=== PATIENT | female | born 1965 | race Caucasian/White ===

== ENCOUNTER 2021-03-08 06:23 | Day surgery (SDC) | payer BC ==
[~2021-03-08] VITALS: Ht 152.4 cm; Wt 68.2 kg
[2021-03-08] MEDS ORDERED: LEVE250T5 PO (06:56)
[2021-03-08] MEDS ORDERED: CITA40TA12 PO (06:56)
[2021-03-08] MEDS ORDERED: LISI-170 PO (06:56)
[2021-03-08] MEDS ORDERED: VITAMIN D PO (06:56)
[2021-03-08] MEDS ORDERED: CHLORHEXIDINE 15 ML UDC PO ONE (07:00)
[2021-03-08] MEDS ORDERED: LACTATED RINGERS 1,000 ML IV SCH (07:00)
[2021-03-08 07:05] VITALS: BP 118/82
[2021-03-08] MEDS ORDERED: BUPIVACAINE/PF 0.5% ONE (07:35)
[2021-03-08] MEDS ORDERED: LIDOCAINE-MPF 1%, 5ML ONE (07:35)
[2021-03-08 07:52] LABS: ALANINE AMINOTRANSFERASE 50 U/L (12-78); ALBUMIN 3.3 g/dL (3.4-5.0); ANION GAP 9 mmol/L (5-15); CHLORIDE 111 mmol/L (98-107)
[2021-03-08] MEDS ORDERED: PROPOFOL 10 MG/ML, 20ML ONE (07:52)
[2021-03-08] MEDS ORDERED: FENTANYL PF 100 MCG/2ML ONE (07:52)
[2021-03-08] MEDS ORDERED: DEXAMETHASONE 4 MG/ML, 1ML ONE (07:52)
[2021-03-08] MEDS ORDERED: MIDAZOLAM 1 MG/ML, 5ML ONE (07:52)
[2021-03-08] MEDS ORDERED: ONDANSETRON 2MG/ML, 2ML ONE (07:52)
[2021-03-08] MEDS ORDERED: CEFAZOLIN 1,000 MG ONE (07:52)
[2021-03-08 07:55] LABS: ALKALINE PHOSPHATASE 88 U/L (45-117); BILIRUBIN,TOTAL 0.5 mg/dL (0.2-1.0); TOTAL PROTEIN 6.8 g/dL (6.4-8.2)
[2021-03-08] MEDS ORDERED: PROMETHAZINE 25 MG/ML, 1ML IVPush PRN (08:00)
[2021-03-08] MEDS ORDERED: OXYcodone 5 MG/5 ML ORAL.SOL UDC PO PRN (08:00)
[2021-03-08] MEDS ORDERED: morphine SULFATE 10 MG/ML, 1ML IVPush PRN (08:00)
[2021-03-08] MEDS ORDERED: MEPERIDINE/PF 25MG/0.5ML IVPush PRN (08:00)
[2021-03-08] MEDS ORDERED: HYDROmorphone 1 MG/ML, 1ML INJ IVPush PRN (08:00)
[2021-03-08] MEDS ORDERED: LABETALOL 5MG/ML, 20ML IV PRN (08:00)
[2021-03-08] MEDS ORDERED: FENTANYL PF 100 MCG/2ML IV PRN (08:00)
[2021-03-08] MEDS ORDERED: hydrALAzine 20 MG/ML, 1ML IV PRN (08:00)
[2021-03-08] MEDS ORDERED: HALOPERIDOL 5 MG/ML IV PRN (08:00)
[2021-03-08] MEDS ORDERED: ACETAMINOPHEN 650 MG/20.3 ML UDC ONE (09:22)
[2021-03-08] MEDS: ACETAMINOPHEN 325 MG TABLET PO PRN ×2 (09:26→09:29)
== END 2021-03-08 10:55 | disposition home or self-care (01) ==
LOC: OUT 06:23
PROVIDERS: ATTEND Orthopaedic Surgery Hand Surgery
DX: M67.431 Ganglion, right wrist (principal); I10 Essential (primary) hypertension; G40.909 Epilepsy, unspecified, not intractable, without status epilepticus; F32.9 Major depressive disorder, single episode, unspecified; F41.9 Anxiety disorder, unspecified; Z20.822 Contact with and (suspected) exposure to COVID-19; Z79.899 Other long term (current) drug therapy; Z87.891 Personal history of nicotine dependence; Z91.048 Other nonmedicinal substance allergy status
CPT/HCPCS: 25111; 36415; 80053; J0690; J1100; J2250; J2405; J2704; J3010; J7120; U0003; U0005